=== PATIENT | male | born 1940 | race Caucasian/White ===

== ENCOUNTER → 2019-08-31 11:42 | Outpatient (CLI) | payer MEDICARE, BC, SELFPAY ==
[2019-09-01 18:18] LABS: PSA, Free 1.23 ng/mL; Prostate Specific Ag 5.1 ng/mL (0.0-4.0)
== END ==
PROVIDERS: Visit Provider Urology
DX: R97.20 Elevated prostate specific antigen [PSA] (principal)
CPT/HCPCS: 36415; 84153; 84154